=== PATIENT | male | born 1945 | race American Indian/Alaskan Native ===

== ENCOUNTER 2018-10-07 11:52 | Inpatient (IN) | payer MEDICARE ==
[2018-10-07 13:04] LABS: Basophils # (Auto) 0.1 K/mm3 (0.0-0.1); Basophils % (Auto) 0.6 % (0.0-1.8); Eosinophils # (Auto) 0.4 K/mm3 (0.0-0.4); Hematocrit 35.7 % (35.5-45.6); Hemoglobin 12.2 gm/dl (11.8-15.2); Lymphocytes # (Auto) 4.1 K/mm3 (1.2-5.4); Lymphocytes % (Auto) 35.8 % (13.4-35.0); Mean Corpuscular HGB Conc 34 % (32-34); Mean Corpuscular Volume 86 fl (84-94); Monocytes # (Auto) 0.8 K/mm3 (0.0-0.8); Platelet Count 306 K/mm3 (140-440); Red Blood Count 4.16 M/mm3 (3.65-5.03); Red Cell Distribution Width 14.5 % (13.2-15.2)
[2018-10-07 13:15] LABS: INR 0.92 (0.87-1.13)
[2018-10-07 13:16] LABS: Partial Thromboplastin Time 28.4 Sec. (24.2-36.6)
--- NOTE | 2018-10-07 13:16 | XRay Report ---
AP CHEST : 10/07/18 CLINICAL: Chest pain. COMPARISON:None FINDINGS: Normal heart and pulmonary vessels. The lungs are normally expanded and clear. The bones and soft tissues are unremarkable. IMPRESSION: Normal chest.
[2018-10-07 13:28] LABS: Alanine Aminotransferase 12 units/L (7-56); Albumin 3.9 g/dL (3.9-5); BUN/Creatinine Ratio 23; Blood Urea Nitrogen 37 mg/dL (9-20); Calcium 9.5 mg/dL (8.4-10.2); Hemolysis Index 22
[2018-10-07 13:33] LABS: Bilirubin,Direct < 0.2 mg/dL (0-0.2)
--- NOTE | 2018-10-07 14:41 | Emergency Department Report ---
ED General Adult HPI - General Chief complaint: GI Bleed Stated complaint: COUGHING/BLOOD IN STOOL Time Seen by Provider: 10/07/18 12:38 Source: patient Mode of arrival: Ambulatory Limitations: No Limitations - History of Present Illness Initial comments: Patient is a 72-year-old -[place] male who is presenting with 1 week of blood in his stool. Patient states that week ago he started having some blood in his sputum is coughing up blood. Patient states this resolved. He is continued to have blood in his stool. The patient denies any abdominal pain at this time. Patient was sent in from his cardiology office to be evaluated. Patient also is having chest pressure worse with exertion shortness of breath the last several days as well. Patient states that he was concerned his blood pressure was elevated as cardiology office. Patient denies any fevers chills nausea vomiting or diaphoresis at this time. - Related Data Allergies Allergy/AdvReac Type Severity Reaction Status Date / Time No Known Allergies Allergy Unverified 10/07/18 11:53 ED Review of Systems ROS: Stated complaint: COUGHING/BLOOD IN STOOL Other details as noted in HPI Comment: All other systems reviewed and negative ED Physical Exam - General Limitations: No Limitations General appearance: alert, in no apparent distress - Head Head exam: Present: atraumatic, normocephalic - Eye Eye exam: Present: normal appearance - ENT ENT exam: Present: mucous membranes moist - Neck Neck exam: Present: normal inspection - Respiratory Respiratory exam: Present: normal lung sounds bilaterally. Absent: respiratory distress, wheezes, rales, rhonchi - Cardiovascular Cardiovascular Exam: Present: regular rate, normal rhythm, normal heart sounds. Absent: systolic murmur, diastolic murmur, rubs, gallop - GI/Abdominal GI/Abdominal exam: Present: soft, distended, normal bowel sounds. Absent: tenderness, guarding, rebound, rigid - Rectal Rectal exam: Present: deferred - Extremities Exam Extremities exam: Present: normal inspection - Back Exam Back exam: Present: normal inspection - Neurological Exam Neurological exam: Present: alert, oriented X3 - Psychiatric Psychiatric exam: Present: normal affect, normal mood - Skin Skin exam: Present: warm, dry, intact, normal color. Absent: rash ED Medical Decision Making - Lab Data Result diagrams: 10/07/18 12:48 10/07/18 12:48 Lab Results 10/07/18 10/07/18 10/07/18 Range/Units 12:48 12:48 12:48 WBC 11.6 H (4.5-11.0) K/mm3 RBC 4.16 (3.65-5.03) M/mm3 Hgb 12.2 (11.8-15.2) gm/dl Hct 35.7 (35.5-45.6) % MCV 86 (84-94) fl MCH 29 (28-32) pg MCHC 34 (32-34) % RDW 14.5 (13.2-15.2) % Plt Count 306 (140-440) K/mm3 Lymph % (Auto) 35.8 H (13.4-35.0) % [place] % (Auto) 7.0 (0.0-7.3) % Eos % (Auto) 3.0 (0.0-4.3) % Baso % (Auto) 0.6 (0.0-1.8) % Lymph # 4.1 (1.2-5.4) K/mm3 [place] # 0.8 (0.0-0.8) K/mm3 Eos # 0.4 (0.0-0.4) K/mm3 Baso # 0.1 (0.0-0.1) K/mm3 Seg Neutrophils % 53.6 (40.0-70.0) % Seg Neutrophils # 6.2 (1.8-7.7) K/mm3 PT 12.9 (12.2-14.9) Sec. INR 0.92 (0.87-1.13) APTT 28.4 (24.2-36.6) Sec. Sodium 135 L (137-145) mmol/L Potassium 4.5 (3.6-5.0) mmol/L Chloride 100.9 (98-107) mmol/L Carbon Dioxide 17 L (22-30) mmol/L Anion Gap 22 mmol/L BUN 37 H (9-20) mg/dL Creatinine 1.6 H (0.8-1.5) mg/dL Estimated GFR 52 ml/min BUN/Creatinine Ratio 23 % Glucose 108 H (75-100) mg/dL Calcium 9.5 (8.4-10.2) mg/dL Total Bilirubin 0.40 (0.1-1.2) mg/dL Direct Bilirubin < 0.2 (0-0.2) mg/dL AST 13 (5-40) units/L ALT 12 (7-56) units/L Alkaline Phosphatase 81 (35-129) units/L Troponin T < 0.010 (0.00-0.029) ng/mL Total Protein 8.4 H (6.3-8.2) g/dL Albumin 3.9 (3.9-5) g/dL Albumin/Globulin Ratio 0.9 % - EKG Data -: EKG Interpreted by Wi - EKG Data 10/07/18 14:38 EKG shows sinus rhythm a rate of 92. This mole axis normal intervals. There is LVH present. Patient has T-wave inversions in lateral leads. There is no ST segment elevation or depressions. Time of interpretation 1355 - Radiology Data Radiology results: report reviewed [facility] [address] [place] [address] XRay Report Signed Patient: HUNTER CHRISTIE MR#: [id number] 68 : 1945 Acct:[id number] Age/Sex: 72 / M ADM Date: 10/07/18 Loc: ED Attending Dr: Ordering Physician: FABIANA KHALIL MD Date of Service: 10/07/18 Procedure(s): XR chest 1V ap Accession Number(s): [id number] cc: FABIANA KHALIL MD Fluoro Time In Minutes: AP CHEST : 10/07/18 CLINICAL: Chest pain. COMPARISON:None FINDINGS: Normal heart and pulmonary vessels. The lungs are normally expanded and clear. The bones and soft tissues are unremarkable. IMPRESSION: Normal chest. Transcribed By: REF Dictated By: RAULITO HILL MD Electronically Authenticated By: RAULITO HILL MD Signed Date/Time: 10/07/18 1300 - Medical Decision Making Patient is a 72-year-old male who is presenting with chest pain and short of breath with exertion. Patient also noted to have blood in stool. Patient's guaiac positive here in the emergency department. Patient to be admitted to hospitalist service for evaluation for unstable angina. Patient also to have GI consult regarding his GI bleed as well. Critical Care Time: Yes (30) Critical care attestation.: If time is entered above; I have spent that time in minutes in the direct care of this critically ill patient, excluding procedure time. ED Disposition Clinical Impression: Unstable angina GI bleed Qualifiers: GI bleed type/associated pathology: unspecified gastrointestinal hemorrhage type Qualified Code(s): K92.2 - Gastrointestinal hemorrhage, unspecified Disposition: 09 OP ADMIT IP TO THIS HOSP Is pt being admited?: Yes Does the pt Need Aspirin: No (asa held secondary to the GI bleeding) Condition: Serious Time of Disposition: 14:41
[2018-10-07] MEDS: NITROSTAT SL PRN ×2 (16:08→17:12)
--- NOTE | 2018-10-07 18:19 | Cat Scan Report ---
PROCEDURE: CT ABDOMEN PELVIS WO CON TECHNIQUE: Axial images of the abdomen and pelvis obtained without intravenous or oral contrast. Sag ittal and coronal reconstructions also obtained. HISTORY: ASCITES COMPARISONS: No priors FINDINGS: Images through the lung bases show no evidence of airspace consolidation or pleural effusions. The liver, spleen, adrenals, pancreas are within normal limits. There is a small hiatal hernia. Multiple gallstones in the dependent portion of the gallbladder. There is no evidence of urolithiasis or obstructive uropathy. Renal vascular calcifications noted. No ascites. No bowel obstruction or free intraperitoneal air. No evidence of colitis or diverticulitis. Normal appendix. Sigmoid diverticulosis. Urinary bladder within normal limits. Limited evaluation without intravenous and oral contrast. IMPRESSION: . Cholelithiasis. Small hiatal hernia. Sigmoid diverticulosis with no diverticulitis. No evidence of ascites. This document is electronically signed by Misha Bustos MD., October 07 2018 06:16:53 PM ET
[2018-10-07] MEDS ORDERED: APRESOLINE IV ONE (20:00)
[2018-10-07] MEDS ORDERED: SODIUM CHLORIDE FLUSH SYRINGE 10 ML IV PRN (21:55)
[2018-10-07] MEDS ORDERED: REGLAN IV PRN (21:55)
[2018-10-07] MEDS ORDERED: TYLENOL PO PRN (21:55)
[2018-10-07] MEDS ORDERED: ZOFRAN IV PRN (21:55)
[2018-10-07] MEDS ORDERED: DILAUDID IV PRN (21:55)
--- NOTE | 2018-10-07 21:55 | Event Note ---
Date: 10/07/18 See H/p in reports Chest pain r/o ID Lower GI Bleed
[2018-10-07] MEDS ORDERED: NACL 0.9% 1000 ML 1,000 ML IV SCH (22:00)
[2018-10-07] MEDS: SODIUM CHLORIDE FLUSH SYRINGE 10 ML IV SCH (23:44)
[2018-10-07] MEDS: PROTONIX 80 MG in NACL 0.9% 100 ML IV SCH (23:44)
--- NOTE | 2018-10-08 06:03 | History and Physical Report ---
CHIEF COMPLAINT: 1. Lower GI bleed. 2. Chest pressure for 1 day. HISTORY OF PRESENT ILLNESS: A 72-year-old sent from [facility] for chest pressure and low GI bleed. The patient has been having 1 week of blood in the stool, small amounts. The patient also coughed up some blood. This has resolved as per the patient. He continues to have a small amount of blood in the stool, bright red. Also, chest pain and chest pressure with exertion and also shortness of breath for the last couple of weeks. The patient is also concerned about his blood pressure being elevated at the Cardiology office. No fever or chills. No recent travel. No prior history of GI bleed. PAST MEDICAL HISTORY: Significant for hypertension, vitamin D deficiency, arthritis. PAST SURGICAL HISTORY: None. FAMILY HISTORY: Hypertension. SOCIAL HISTORY: Does not smoke. No alcohol, no recreational drugs. REVIEW OF SYSTEMS: Significant for shortness of breath and chest pressure on exertion and also blood in the stools for the last 1 week. Otherwise, review of systems negative. PHYSICAL EXAMINATION: GENERAL: Elderly male, cooperative during examination. VITAL SIGNS: Blood pressure is 138/90, temperature is 98.5, pulse is 104, respiratory rate is 14, sats are 97%. HEENT: Unremarkable. Pupils are equal and reactive. NECK: Supple, no lymphadenopathy, no thyromegaly. LUNGS: Clear to auscultation and percussion. Good air entry. CARDIOVASCULAR: S1, S2 heard. No gallop, no murmur, no rub. Apical impulse in the left fifth intercostal space and midclavicular line. ABDOMEN: Soft and benign. No hepatosplenomegaly. No guarding, no rigidity. Hernial orifices are normal. EXTREMITIES: Good pedal pulses. No pedal edema. CENTRAL NERVOUS SYSTEM: Alert and oriented x 4, nonfocal exam. LABORATORY DATA AND EKG STUDIES: EKG shows sinus rhythm, LVH by voltage criteria, heart rate of 92 per minute. Chest x-ray shows normal chest. No acute findings. Abdominal CAT scan shows cholelithiasis, small hiatal hernia, sigmoid diverticulosis with no diverticulitis. No evidence of ascites. Labs are significant for white count of 11,600, hemoglobin of 12.2, hematocrit of 35.7, platelet count of 306,000. Sodium is 135. BUN and creatinine 37 and 1.6. Glucose is 108. Total protein is 8.4. ASSESSMENT AND PLAN: 1. Chest pain, rule out myocardial infarction, chest pain protocol. The patient to get serial troponins and Lexiscan. Cardiology consult requested. 2. Lower gastrointestinal bleed. GI consult requested for possible colonoscopy and upper endoscopy. The patient initiated on Protonix. 3. Hypertension. Continue antihypertensives. 4. Deep venous thrombosis prophylaxis, only SCDs and GI prophylaxis. 5. Hyponatremia, mild. 6. Acute kidney injury, IV fluids for the time being. JOB# [id number] VSM/NTS
[2018-10-08 07:42] LABS: Basophils # (Auto) 0.1 K/mm3 (0.0-0.1); Basophils % (Auto) 0.5 % (0.0-1.8); Eosinophils # (Auto) 0.2 K/mm3 (0.0-0.4); Eosinophils % (Auto) 2.2 % (0.0-4.3); Hematocrit 33.9 % (35.5-45.6); Hemoglobin 11.6 gm/dl (11.8-15.2); Lymphocytes # (Auto) 3.7 K/mm3 (1.2-5.4); Lymphocytes % (Auto) 34.6 % (13.4-35.0); Mean Corpuscular HGB Conc 34 % (32-34); Mean Corpuscular Volume 86 fl (84-94); Monocytes # (Auto) 0.9 K/mm3 (0.0-0.8); Monocytes % (Auto) 8.6 % (0.0-7.3); Platelet Count 271 K/mm3 (140-440); Red Blood Count 3.92 M/mm3 (3.65-5.03); Red Cell Distribution Width 15.1 % (13.2-15.2)
[2018-10-08 08:02] LABS: Albumin 3.7 g/dL (3.9-5); Calcium 8.8 mg/dL (8.4-10.2)
--- NOTE | 2018-10-08 11:25 | Consultation ---
History of Present Illness Consult date: 10/08/18 Consult reason: chest pain History of present illness: This is a 72 year old male who presented with lower GI bleed. Patient reports he takes ibuprofen daily. Initial labs revealed acute renal failure, creatinine 1.7. H&h is stable. A cardiac consultation has been requested for chest pain evaluation. Upon assessment, patient denies chest pain. He denies unusual shortness of breath and palpitations. His EKG is sinus rhythm, LVH with repolarization abnormalities. Patient is known to [facility] and has recently undergone non-invasive car diac workup. Just one month ago he had a normal myocardial perfusion scan, and a normal left ventricular function, ejection fraction 50-55% by echocardiogram. Medications and Allergies Allergies Allergy/AdvReac Type Severity Reaction Status Date / Time No Known Allergies Allergy Unverified 10/07/18 11:53 Home Medications Medication Instructions Recorded Confirmed Last Taken Type Ergocalciferol (Vitamin D2) 50,000 unit PO QWEEK 10/07/18 10/07/18 Unknown History [Drisdol] Ibuprofen [Ibu] 800 mg PO TID 10/07/18 10/07/18 Unknown History NIFEdipine XL [Procardia Xl] 60 mg PO DAILY 10/07/18 10/07/18 Unknown History Active Meds: Active Medications Acetaminophen (Tylenol) 650 mg PO Q4H PRN PRN Reason: Pain MILD(1-3)/Fever >100.5/LARA Hydromorphone HCl (Dilaudid) 0.5 mg IV Q3H PRN PRN Reason: Pain , Severe (7-10) Sodium Chloride (Nacl 0.9% 1000 Ml) 1,000 mls @ 75 mls/hr IV DIRECT CHAVEZ Last Admin: 10/07/18 23:44 Dose: 75 mls/hr Documented by: Pantoprazole Sodium 80 mg/ (Sodium Chloride) 100 mls @ 10 mls/hr IV DIRECT CHAVEZ Last Admin: 10/07/18 23:44 Dose: 8 mg/hr, 10 mls/hr Documented by: Metoclopramide HCl (Reglan) 10 mg IV Q6H PRN PRN Reason: Nausea And Vomiting Morphine Sulfate (Morphine) 2 mg IV Q4H PRN PRN Reason: Pain, Moderate (4-6) Last Admin: 10/08/18 00:00 Dose: 2 mg Documented by: Nitroglycerin (Nitrostat) 0.4 mg SL .Q5MIN PRN PRN Reason: Chest Pain Last Admin: 10/07/18 17:12 Dose: 0.4 mg Documented by: Ondansetron HCl (Zofran) 4 mg IV Q8H PRN PRN Reason: Nausea And Vomiting Sodium Chloride (Sodium Chloride Flush Syringe 10 Ml) 10 ml IV BID CHAVEZ Last Admin: 10/07/18 23:44 Dose: 10 ml Documented by: Sodium Chloride (Sodium Chloride Flush Syringe 10 Ml) 10 ml IV PRN PRN PRN Reason: LINE FLUSH Physical Examination Vital Signs Pulse Resp BP Pulse Ox 87 23 175/83 95 10/07/18 11:15 10/07/18 11:15 10/07/18 11:15 10/07/18 11:15 General appearance: no acute distress, obese HEENT: Positive: PERRL Cardiac: Positive: Reg Rate and Rhythm Lungs: Positive: Decreased Breath Sounds Neuro: Positive: Grossly Intact Results 10/08/18 07:00 10/08/18 07:00 Cardiac Enzymes 10/07/18 10/08/18 Range/Units 12:48 07:00 AST 13 11 (5-40) units/L Coagulation 10/07/18 Range/Units 12:48 PT 12.9 (12.2-14.9) Sec. INR 0.92 (0.87-1.13) APTT 28.4 (24.2-36.6) Sec. CBC 10/07/18 10/08/18 Range/Units 12:48 07:00 WBC 11.6 H 10.8 (4.5-11.0) K/mm3 RBC 4.16 3.92 (3.65-5.03) M/mm3 Hgb 12.2 11.6 L (11.8-15.2) gm/dl Hct 35.7 33.9 L (35.5-45.6) % Plt Count 306 271 (140-440) K/mm3 Lymph # 4.1 3.7 (1.2-5.4) K/mm3 [place] # 0.8 0.9 H (0.0-0.8) K/mm3 Eos # 0.4 0.2 (0.0-0.4) K/mm3 Baso # 0.1 0.1 (0.0-0.1) K/mm3 Comprehensive Metabolic Panel 10/07/18 10/08/18 Range/Units 12:48 07:00 Sodium 135 L 133 L (137-145) mmol/L Potassium 4.5 4.4 (3.6-5.0) mmol/L Chloride 100.9 101.0 (98-107) mmol/L Carbon Dioxide 17 L 18 L (22-30) mmol/L BUN 37 H 36 H (9-20) mg/dL Creatinine 1.6 H 1.7 H (0.8-1.5) mg/dL Glucose 108 H 116 H (75-100) mg/dL Calcium 9.5 8.8 (8.4-10.2) mg/dL Direct Bilirubin < 0.2 (0-0.2) mg/dL AST 13 11 (5-40) units/L ALT 12 10 (7-56) units/L Alkaline Phosphatase 81 71 (35-129) units/L Total Protein 8.4 H 8.2 (6.3-8.2) g/dL Albumin 3.9 3.7 L (3.9-5) g/dL Assessment and Plan Lower GI bleed Hypertension Normal myocardial perfusion scan 08/2018 Normal left ventricular function, ejection fraction 50-55% by echocardiogram 08/2018. Ok to proceed with GI endoscopy.
--- NOTE | 2018-10-08 13:26 | Progress Note ---
Assessment and Plan Assessment and plan: Chest pain - Cardiac enzymes are negative, stress test was ordered - Cardiology consulted and cleared him for EGD/colonoscopy Rectal bleeding - H&H is stable - GI consulted and due to endoscopy today Acute renal failure - Creatinine this morning was 1.7 - We'll monitor Mild hyponatremia - Patient is symptomatic and will monitor Chronic hep C - Patient is on treatment for that DVT prophylaxis Disposition - Continue inpatient care History Interval history: Patient was seen and evaluated this morning, patient was comfortable, chest pain resolved. No rectal bleeding overnight. Hospitalist Physical - Physical exam Narrative exam: Not in cardiopulmonary distress. The patient appeared well nourished and normally developed. Vital signs as documented. Head exam is unremarkable. No scleral icterus . Neck is without jugular venous distension, thyromegaly, or carotid bruits. Lungs are clear to auscultation. Cardiac exam reveals regular rate and Rhythm. First and second heart sounds normal. No murmurs, rubs or gallops. Abdominal exam obese, distended, nontender, no guarding or rigidity.. Extremities are nonedematous and both femoral and pedal pulses are normal. BALANCE STAFF INSPECTOR: Alert and oriented 3. No focal weakness. - Constitutional Vitals: Temp Pulse Resp BP Pulse Ox 98.1 F 101 H 16 146/81 100 10/08/18 04:19 10/08/18 04:19 10/08/18 04:19 10/08/18 04:19 10/08/18 04:19 General appearance: Present: no acute distress, obese Results - Labs CBC & Chem 7: 10/08/18 07:00 10/08/18 07:00 Labs: Laboratory Last Values WBC 10.8 K/mm3 (4.5-11.0) 10/08/18 07:00 RBC 3.92 M/mm3 (3.65-5.03) 10/08/18 07:00 Hgb 11.6 gm/dl (11.8-15.2) L 10/08/18 07:00 Hct 33.9 % (35.5-45.6) L 10/08/18 07:00 MCV 86 fl (84-94) 10/08/18 07:00 MCH 30 pg (28-32) 10/08/18 07:00 MCHC 34 % (32-34) 10/08/18 07:00 RDW 15.1 % (13.2-15.2) 10/08/18 07:00 Plt Count 271 K/mm3 (140-440) 10/08/18 07:00 Lymph % (Auto) 34.6 % (13.4-35.0) 10/08/18 07:00 [place] % (Auto) 8.6 % (0.0-7.3) H 10/08/18 07:00 Eos % (Auto) 2.2 % (0.0-4.3) 10/08/18 07:00 Baso % (Auto) 0.5 % (0.0-1.8) 10/08/18 07:00 Lymph # 3.7 K/mm3 (1.2-5.4) 10/08/18 07:00 [place] # 0.9 K/mm3 (0.0-0.8) H 10/08/18 07:00 Eos # 0.2 K/mm3 (0.0-0.4) 10/08/18 07:00 Baso # 0.1 K/mm3 (0.0-0.1) 10/08/18 07:00 Seg Neutrophils % 54.1 % (40.0-70.0) 10/08/18 07:00 Seg Neutrophils # 5.9 K/mm3 (1.8-7.7) 10/08/18 07:00 PT 12.9 Sec. (12.2-14.9) 10/07/18 12:48 INR 0.92 (0.87-1.13) 10/07/18 12:48 APTT 28.4 Sec. (24.2-36.6) 10/07/18 12:48 Sodium 133 mmol/L (137-145) L 10/08/18 07:00 Potassium 4.4 mmol/L (3.6-5.0) 10/08/18 07:00 Chloride 101.0 mmol/L (98-107) 10/08/18 07:00 Carbon Dioxide 18 mmol/L (22-30) L 10/08/18 07:00 Anion Gap 18 mmol/L 10/08/18 07:00 BUN 36 mg/dL (9-20) H 10/08/18 07:00 Creatinine 1.7 mg/dL (0.8-1.5) H 10/08/18 07:00 Estimated GFR 48 ml/min 10/08/18 07:00 BUN/Creatinine Ratio 21 % 10/08/18 07:00 Glucose 116 mg/dL (75-100) H 10/08/18 07:00 Hemoglobin A1c 5.8 % (4-6) 10/07/18 13:25 Calcium 8.8 mg/dL (8.4-10.2) 10/08/18 07:00 Total Bilirubin 0.40 mg/dL (0.1-1.2) 10/08/18 07:00 Direct Bilirubin < 0.2 mg/dL (0-0.2) 10/07/18 12:48 AST 11 units/L (5-40) 10/08/18 07:00 ALT 10 units/L (7-56) 10/08/18 07:00 Alkaline Phosphatase 71 units/L (35-129) 10/08/18 07:00 Troponin T < 0.010 ng/mL (0.00-0.029) 10/07/18 14:44 Total Protein 8.2 g/dL (6.3-8.2) 10/08/18 07:00 Albumin 3.7 g/dL (3.9-5) L 10/08/18 07:00 Albumin/Globulin Ratio 0.8 % 10/08/18 07:00 Active Medications - Current Medications Current Medications: Generic Name Dose Route Start Last Admin Trade Name Freq PRN Reason Stop Dose Admin Acetaminophen 650 mg 10/07/18 21:55 Tylenol PO Q4H PRN Pain MILD(1-3)/Fever >100.5/LARA Hydromorphone HCl 0.5 mg 10/07/18 21:55 Dilaudid IV Q3H PRN Pain , Severe (7-10) Sodium Chloride 1,000 mls @ 75 mls/hr 10/07/18 22:00 10/07/18 23:44 Nacl 0.9% 1000 Ml IV 75 mls/hr DIRECT CHAVEZ Administration Pantoprazole Sodium 80 mg/ 100 mls @ 10 mls/hr 10/07/18 22:00 10/07/18 23:44 Sodium Chloride IV 8 mg/hr DIRECT CHAVEZ 10 mls/hr Administration 8 MG/HR Metoclopramide HCl 10 mg 10/07/18 21:55 Reglan IV Q6H PRN Nausea And Vomiting Morphine Sulfate 2 mg 10/07/18 21:55 10/08/18 00:00 Morphine IV 2 mg Q4H PRN Administration Pain, Moderate (4-6) Nitroglycerin 0.4 mg 10/07/18 13:33 10/07/18 17:12 Nitrostat SL 0.4 mg .Q5MIN PRN Administration Chest Pain Ondansetron HCl 4 mg 10/07/18 21:55 Zofran IV Q8H PRN Nausea And Vomiting Sodium Chloride 10 ml 10/07/18 22:00 10/07/18 23:44 Sodium Chloride Flush Syringe 10 Ml IV 10 ml BID CHAVEZ Administration Sodium Chloride 10 ml 10/07/18 21:55 Sodium Chloride Flush Syringe 10 Ml IV PRN PRN LINE FLUSH
[2018-10-08] MEDS: NACL 0.9% 1000 ML 1,000 ML IV SCH (14:32)
[2018-10-08] MEDS ORDERED: DIPRIVAN 10 MG/ML IV ONE (15:40)
[2018-10-08] MEDS ORDERED: XYLOCAINE 2% INFILTRATI ONE (15:42)
--- NOTE | 2018-10-08 16:04 | Procedure Note ---
Date of procedure: 10/08/18 Pre-op diagnosis: GI Bleeding Post-op diagnosis: other Procedure: EGD with Biopsy Anesthesia: MAC Surgeon: NINA BAE Estimated blood loss: minimal Pathology: list Specimen disposition: to lab Condition: stable Disposition: same day (Treat with PPI. Colonoscopy in the am further assessment.)
[2018-10-08] MEDS ORDERED: GOLYTELY PO ONE (17:00)
--- NOTE | 2018-10-08 17:44 | Operative Report ---
PROCEDURE: EGD with biopsy. INDICATIONS: A 72-year-old -[place] gentleman who has an underlying prior history of alcohol use, has had chronic hepatitis C for which he has been treated over with a 12-week course of treatment, presented to the hospital with GI bleeding. DESCRIPTION OF PROCEDURE: EGD was done with MAC anesthesia after getting informed consent. Instrument was passed through the hypopharynx into the esophagus, which showed moderate distal erosive esophagitis. There was no evidence of any esophageal varices. Stomach showed antral erosion, but no ulcers were noted within the straight or the retroverted view. This patient did have a moderate hiatal hernia. There was no evidence of any old or new blood within the gastric lumen. The pylorus was patent. The duodenum in the first and second portion appeared normal. There was no blood within the duodenal lumen. A biopsy was done from the gastric antrum where the erosion was, from the gastric body and from the angularis incisura. There was minimal bleeding from the biopsy sites, but no active bleeding was noted from the upper GI tract. ASSESSMENT: Gastrointestinal bleeding. No active upper GI bleeding noted. Moderate distal erosive esophagitis, moderate hiatal hernia, antral erosion. PLAN: To treat the patient with PPI, supportive care and treatment, and to do a colonoscopy for further assessment. RN, Geetha Newton was in the room throughout the entirety of the procedure, there were no complications associated with the procedure and minimal bleeding associated with the biopsy. [facility]# [id number] NICOLETTE/REX
[2018-10-08 19:37] LABS: Basophils # (Auto) 0.1 K/mm3 (0.0-0.1); Basophils % (Auto) 0.8 % (0.0-1.8); Eosinophils # (Auto) 0.2 K/mm3 (0.0-0.4); Eosinophils % (Auto) 2.5 % (0.0-4.3); Hematocrit 33.4 % (35.5-45.6); Hemoglobin 11.3 gm/dl (11.8-15.2); Lymphocytes # (Auto) 3.4 K/mm3 (1.2-5.4); Mean Corpuscular HGB Conc 34 % (32-34); Mean Corpuscular Volume 86 fl (84-94); Monocytes % (Auto) 10.4 % (0.0-7.3); Platelet Count 261 K/mm3 (140-440); Red Blood Count 3.87 M/mm3 (3.65-5.03); Red Cell Distribution Width 14.8 % (13.2-15.2)
[2018-10-08] MEDS: MORPHINE IV PRN ×2 (20:01)
--- NOTE | 2018-10-08 21:52 | Consultation ---
HISTORY OF PRESENT ILLNESS: This is a 72-year-old -[place] gentleman who has a prior history of significant alcohol use, also has a history of hepatitis C for which he states he has been treated with one of the newer drugs. He gives no prior history of stroke or any cardiac issues, but had presented to the hospital with GI bleeding. He was having dark stool suggestive possibly of melena. He states that he may have had melena in the past as well. He is to be assessed by field marketing director and if okay from a cardiology standpoint, then EGD may be done for further evaluation. The patient did complain of some chest pressure for which he is being assessed by Cardiology as stated above. ALLERGIES: He has had no known allergies. PAST MEDICAL HISTORY: Significant for chronic hepatitis C that has been treated, history of alcohol and tobacco use, which he states that he does not use at present. PHYSICAL EXAMINATION: VITAL SIGNS: stable. HEENT: Shows no JVD. LUNGS: Show reduced breath sounds. CARDIOVASCULAR: Normal. ABDOMEN: Shows some mid abdominal tenderness. EXTREMITIES: No pedal edema. NEUROLOGIC: He is alert and oriented. LABORATORY DATA: His hemoglobin was 12.2 when he initially came in with a hematocrit of 35.7 and a white count of 11.6. Electrolytes are essentially normal. BUN is 37, creatinine is 1.6. ASSESSMENT: Gastrointestinal bleeding with melena, possible peptic ulcer disease, history of chronic hepatitis C, possible alcoholic liver disease, history of some chest discomfort. PLAN: To continue with present treatment and to do an EGD once the patient gets cardiac clearance. Thanks to the hospitalist for the kind referral. JOB# [id number] NICOLETTE/REX
[2018-10-09] MEDS: PROTONIX 80 MG in NACL 0.9% 100 ML IV SCH
[2018-10-09] MEDS: NACL 0.9% 1000 ML 1,000 ML IV SCH (05:52)
[2018-10-09 06:34] LABS: Basophils % (Auto) 0.4 % (0.0-1.8); Eosinophils # (Auto) 0.3 K/mm3 (0.0-0.4); Eosinophils % (Auto) 2.8 % (0.0-4.3); Hematocrit 32.7 % (35.5-45.6); Lymphocytes # (Auto) 3.6 K/mm3 (1.2-5.4); Lymphocytes % (Auto) 33.1 % (13.4-35.0); Mean Corpuscular HGB Conc 34 % (32-34); Mean Corpuscular Volume 88 fl (84-94); Monocytes # (Auto) 1.5 K/mm3 (0.0-0.8); Monocytes % (Auto) 13.9 % (0.0-7.3); Platelet Count 237 K/mm3 (140-440); Red Blood Count 3.74 M/mm3 (3.65-5.03); Red Cell Distribution Width 15.1 % (13.2-15.2)
[2018-10-09 07:00] LABS: BUN/Creatinine Ratio 20; Blood Urea Nitrogen 28 mg/dL (9-20); Calcium 8.4 mg/dL (8.4-10.2); Hemolysis Index 11
[2018-10-09] MEDS ORDERED: WATER FOR IRRIG STERILE IR ONE (07:58)
[2018-10-09] MEDS ORDERED: NACL 0.9% 1000 ML 1,000 ML ONE (08:19)
[2018-10-09] MEDS ORDERED: DIPRIVAN 10 MG/ML IV ONE ×6 (08:42→10:15)
[2018-10-09] MEDS ORDERED: NACL 0.9% 1000 ML 1,000 ML IV SCH (09:00)
[2018-10-09] MEDS ORDERED: WATER FOR IRRIG STERILE ONE (09:17)
[2018-10-09] MEDS: SODIUM CHLORIDE FLUSH SYRINGE 10 ML IV SCH ×2 (09:51→21:16)
[2018-10-09] MEDS: PROTONIX PO SCH (09:53)
--- NOTE | 2018-10-09 10:32 | Procedure Note ---
Date of procedure: 10/09/18 Pre-op diagnosis: GI Bleeding Post-op diagnosis: other (Multiple Colon Polyps in the Transverse Colon (one removed in a'piece meal' fashion)/ 5 cc of Martha Ink injected around the larger Polyp) Procedure: Colonoscopy with snare excision of 3 polyps (one removed in a 'piece meal' fashion)and injection of 5 cc of Martha Ink. Anesthesia: MAC Surgeon: NINA BAE Estimated blood loss: minimal Pathology: list Specimen disposition: to lab Condition: stable Disposition: same day (Avoid aspirin and NSAID and anticoagulants for 5 days. Clear liquid diet and then advance as tolerated.)
--- NOTE | 2018-10-09 12:33 | Operative Report ---
PROCEDURE PERFORMED: Colonoscopy. INDICATIONS: A 72-year-old male who had presented to the hospital with GI bleeding. EGD done yesterday had shown presence of gastric erosion and esophagitis, but no evidence of any active GI bleeding. Colonoscopy was done to make sure there was not any significant lower GI pathology that would account for the patient's bleeding. DESCRIPTION OF PROCEDURE: Procedure was done after getting informed consent with MAC anesthesia. Initial rectal exam was unremarkable. Instrument was passed through the rectum onto the cecum with some degree of difficulty since the patient had a tortuous and redundant colon. There was no significant visualization, it was fair to slightly poor. The mucosa was washed with copious amounts of water. In the cecum, ascending colon showed normal mucosa. In the proximal transverse colon, there was a large sessile polyp, possibly 2.5 cm in diameter. This was removed in a piecemeal fashion and about 3 mL of Martha ink was injected around it to zari it since the patient will require a repeat colonoscopy in 6 months' time. There were additional 2 other polyps that were noted in the middle to distal transverse colon that were also removed by snare excision and retrieved. The left colon showed normal mucosa, visualization was slightly impaired because of suboptimal prep and the rectum showed [id number] internal hemorrhoids. There was minimal bleeding from the biopsy sites. No complications associated with the procedure. Luna REDD and the rest of the GI team were in the room during the procedure. ASSESSMENT: Gastrointestinal bleeding, multiple colon polyps, large sessile polyp in the proximal transverse colon as well as smaller sessile polyps also in the distal transverse colon, now removed by snare excision. [id number] internal hemorrhoid. RECOMMENDATIONS: The patient will be asked to avoid aspirin and aspirin-related products and anticoagulants for the next few days. Resume a clear liquid diet and advance diet as tolerated. The patient will be asked to follow up and have a repeat colonoscopy done in 6 months' time since the polyp was removed. The largest polyp was removed in a piecemeal fashion. Again, members of the GI team including Luna REDD, were in the room during the procedure. JOB# [id number] NICOLETTE/REX
--- NOTE | 2018-10-09 12:43 | Progress Note ---
Assessment and Plan Assessment and plan: Chest pain - Cardiac enzymes are negative, stress test was done recently and was negative - Cardiology consulted and cleared him for EGD/colonoscopy Rectal bleeding - H&H is stable - EGD showed mild gastritis and colonoscopy was done today and has one big and 2 small polyps and the big polyp is removed in piecemeal and need repeat colonoscopy in [address] Ruiz Acute renal failure -resolved Mild hyponatremia - resolved Chronic hep C - Patient is on treatment for that DVT prophylaxis; off any anticoagulants for at least 2 days Disposition - Possible DC tomorrow if stable. History Interval history: Patient was seen and evaluated this morning, patient was comfortable, chest pain resolved. No rectal bleeding overnight. Hospitalist Physical - Physical exam Narrative exam: Not in cardiopulmonary distress. The patient appeared well nourished and normally developed. Vital signs as documented. Head exam is unremarkable. No scleral icterus . Neck is without jugular venous distension, thyromegaly, or carotid bruits. Lungs are clear to auscultation. Cardiac exam reveals regular rate and Rhythm. First and second heart sounds normal. No murmurs, rubs or gallops. Abdominal exam obese, distended, nontender, no guarding or rigidity.. Extremities are nonedematous and both femoral and pedal pulses are normal. PAYROLL OFFICER: Alert and oriented 3. No focal weakness. - Constitutional Vitals: Temp Pulse Resp BP Pulse Ox 98.1 F 92 H 20 138/77 96 10/09/18 09:00 10/09/18 09:00 10/09/18 09:00 10/09/18 09:00 10/09/18 10:00 General appearance: Present: no acute distress, obese Results - Labs CBC & Chem 7: 10/09/18 05:37 10/09/18 05:37 Labs: Laboratory Last Values WBC 11.0 K/mm3 (4.5-11.0) 10/09/18 05:37 RBC 3.74 M/mm3 (3.65-5.03) 10/09/18 05:37 Hgb 11.0 gm/dl (11.8-15.2) L 10/09/18 05:37 Hct 32.7 % (35.5-45.6) L 10/09/18 05:37 MCV 88 fl (84-94) 10/09/18 05:37 MCH 30 pg (28-32) 10/09/18 05:37 MCHC 34 % (32-34) 10/09/18 05:37 RDW 15.1 % (13.2-15.2) 10/09/18 05:37 Plt Count 237 K/mm3 (140-440) 10/09/18 05:37 Lymph % (Auto) 33.1 % (13.4-35.0) 10/09/18 05:37 [place] % (Auto) 13.9 % (0.0-7.3) H 10/09/18 05:37 Eos % (Auto) 2.8 % (0.0-4.3) 10/09/18 05:37 Baso % (Auto) 0.4 % (0.0-1.8) 10/09/18 05:37 Lymph # 3.6 K/mm3 (1.2-5.4) 10/09/18 05:37 [place] # 1.5 K/mm3 (0.0-0.8) H 10/09/18 05:37 Eos # 0.3 K/mm3 (0.0-0.4) 10/09/18 05:37 Baso # 0.0 K/mm3 (0.0-0.1) 10/09/18 05:37 Seg Neutrophils % 49.8 % (40.0-70.0) 10/09/18 05:37 Seg Neutrophils # 5.5 K/mm3 (1.8-7.7) 10/09/18 05:37 PT 12.9 Sec. (12.2-14.9) 10/07/18 12:48 INR 0.92 (0.87-1.13) 10/07/18 12:48 APTT 28.4 Sec. (24.2-36.6) 10/07/18 12:48 Sodium 143 mmol/L (137-145) D 10/09/18 05:37 Potassium 4.0 mmol/L (3.6-5.0) 10/09/18 05:37 Chloride 107.1 mmol/L (98-107) H 10/09/18 05:37 Carbon Dioxide 21 mmol/L (22-30) L 10/09/18 05:37 Anion Gap 19 mmol/L 10/09/18 05:37 BUN 28 mg/dL (9-20) H 10/09/18 05:37 Creatinine 1.4 mg/dL (0.8-1.5) 10/09/18 05:37 Estimated GFR > 60 ml/min 10/09/18 05:37 BUN/Creatinine Ratio 20 % 10/09/18 05:37 Glucose 102 mg/dL (75-100) H 10/09/18 05:37 Hemoglobin A1c 5.8 % (4-6) 10/07/18 13:25 Calcium 8.4 mg/dL (8.4-10.2) 10/09/18 05:37 Total Bilirubin 0.40 mg/dL (0.1-1.2) 10/08/18 07:00 Direct Bilirubin < 0.2 mg/dL (0-0.2) 10/07/18 12:48 AST 11 units/L (5-40) 10/08/18 07:00 ALT 10 units/L (7-56) 10/08/18 07:00 Alkaline Phosphatase 71 units/L (35-129) 10/08/18 07:00 Troponin T < 0.010 ng/mL (0.00-0.029) 10/07/18 14:44 Total Protein 8.2 g/dL (6.3-8.2) 10/08/18 07:00 Albumin 3.7 g/dL (3.9-5) L 10/08/18 07:00 Albumin/Globulin Ratio 0.8 % 10/08/18 07:00 Active Medications - Current Medications Current Medications: Generic Name Dose Route Start Last Admin Trade Name Freq PRN Reason Stop Dose Admin Acetaminophen 650 mg 10/07/18 21:55 Tylenol PO Q4H PRN Pain MILD(1-3)/Fever >100.5/LARA Hydromorphone HCl 0.5 mg 10/07/18 21:55 Dilaudid IV Q3H PRN Pain , Severe (7-10) Sodium Chloride 1,000 mls @ 75 mls/hr 10/07/18 22:00 10/07/18 23:44 Nacl 0.9% 1000 Ml IV 75 mls/hr DIRECT CHAVEZ Administration Sodium Chloride 1,000 mls @ 50 mls/hr 10/08/18 15:00 10/09/18 05:52 Nacl 0.9% 1000 Ml IV 50 mls/hr DIRECT CHAVEZ Administration Sodium Chloride 1,000 mls @ 50 mls/hr 10/09/18 09:00 Nacl 0.9% 1000 Ml IV DIRECT CHAVEZ Metoclopramide HCl 10 mg 10/07/18 21:55 Reglan IV Q6H PRN Nausea And Vomiting Morphine Sulfate 2 mg 10/07/18 21:55 10/08/18 20:01 Morphine IV 2 mg Q4H PRN Administration Pain, Moderate (4-6) Nifedipine 60 mg 10/09/18 12:00 Procardia Xl PO DAILY [facility] Nitroglycerin 0.4 mg 10/07/18 13:33 10/07/18 17:12 Nitrostat SL 0.4 mg .Q5MIN PRN Administration Chest Pain Ondansetron HCl 4 mg 10/07/18 21:55 Zofran IV Q8H PRN Nausea And Vomiting Pantoprazole Sodium 40 mg 10/09/18 10:00 10/09/18 09:53 Protonix PO Not Given DAILY [facility] Sodium Chloride 10 ml 10/07/18 22:00 10/09/18 09:51 Sodium Chloride Flush Syringe 10 Ml IV Not Given BID CHAVEZ Sodium Chloride 10 ml 10/07/18 21:55 Sodium Chloride Flush Syringe 10 Ml IV PRN PRN LINE FLUSH
[2018-10-09] MEDS ORDERED: APRESOLINE IV PRN (18:33)
[2018-10-10 07:49] LABS: Basophils # (Auto) 0.1 K/mm3 (0.0-0.1); Basophils % (Auto) 0.6 % (0.0-1.8); Eosinophils # (Auto) 0.2 K/mm3 (0.0-0.4); Eosinophils % (Auto) 1.8 % (0.0-4.3); Hemoglobin 10.9 gm/dl (11.8-15.2); Lymphocytes # (Auto) 3.2 K/mm3 (1.2-5.4); Lymphocytes % (Auto) 24.1 % (13.4-35.0); Mean Corpuscular HGB Conc 33 % (32-34); Mean Corpuscular Volume 89 fl (84-94); Monocytes # (Auto) 1.3 K/mm3 (0.0-0.8); Monocytes % (Auto) 9.4 % (0.0-7.3); Platelet Count 237 K/mm3 (140-440); Red Blood Count 3.72 M/mm3 (3.65-5.03); Red Cell Distribution Width 15.1 % (13.2-15.2)
[2018-10-10 08:14] LABS: BUN/Creatinine Ratio 15; Blood Urea Nitrogen 20 mg/dL (9-20); Calcium 8.6 mg/dL (8.4-10.2); Hemolysis Index 23
[2018-10-10] MEDS: MORPHINE IV PRN (08:16)
--- NOTE | 2018-10-10 08:41 | Progress Note ---
Subjective Date of service: 10/10/18 Principal diagnosis: GI Bleeding Interval history: Patient is clinically doing well and in no apparent distress. Colonoscopy done yesterday had shown the presence of several polyps; the largest was removed in a'piece meal' fashion and patient will need a repeat Colonoscopy in 6 months. O/E HEENT: No JVD Lungs: Reduced Breath Sounds CVS: Normal Heart Sounds Abdomen: Sligtly distended, Bowel sounds present, possible ascites DIRECTOR TEEN POST: Alert and oriented A/P Multiple Colon Poyps/ Esophagitis/Gastric Erosion/H/O Chronic Hep C Treaated: Repeat Colonoscopy after 6months. U/S of the liver also to be done. Objective - Constitutional Vitals: Vital Signs - 12hr 10/09/18 10/10/18 20:59 00:00 Pulse Rate 100 H O2 Sat by Pulse 97 Oximetry - Labs CBC & Chem 7: 10/10/18 07:30 10/10/18 07:30 Labs: Abnormal lab results 10/10/18 10/10/18 Range/Units 07:30 07:30 WBC 13.5 H (4.5-11.0) K/mm3 Hgb 10.9 L (11.8-15.2) gm/dl Hct 33.0 L (35.5-45.6) % [place] % (Auto) 9.4 H (0.0-7.3) % [place] # 1.3 H (0.0-0.8) K/mm3 Seg Neutrophils # 8.7 H (1.8-7.7) K/mm3 Carbon Dioxide 21 L (22-30) mmol/L Glucose 116 H (75-100) mg/dL Medications & Allergies - Medications Allergies/Adverse Reactions: Allergies No Known Allergies Allergy (Unverified 10/07/18 11:53) Home Medications: Home Medications Medication Instructions Recorded Confirmed Last Taken Type Ergocalciferol (Vitamin D2) 50,000 unit PO QWEEK 10/07/18 10/07/18 Unknown Hist ory [Drisdol] Ibuprofen [Ibu] 800 mg PO TID 10/07/18 10/07/18 Unknown History NIFEdipine XL [Procardia Xl] 60 mg PO DAILY 10/07/18 10/07/18 Unknown History Active Medications: Generic Name Dose Route Start Last Admin Trade Name Freq PRN Reason Stop Dose Admin Acetaminophen 650 mg 10/07/18 21:55 Tylenol PO Q4H PRN Pain MILD(1-3)/Fever >100.5/LARA Hydralazine HCl 10 mg 10/09/18 18:33 Apresoline IV Q4HR PRN Hypertension Hydromorphone HCl 0.5 mg 10/07/18 21:55 10/09/18 18:18 Dilaudid IV 0.5 mg Q3H PRN Administration Pain , Severe (7-10) Sodium Chloride 1,000 mls @ 75 mls/hr 10/07/18 22:00 10/07/18 23:44 Nacl 0.9% 1000 Ml IV 75 mls/hr DIRECT CHAVEZ Administration Sodium Chloride 1,000 mls @ 50 mls/hr 10/08/18 15:00 10/09/18 05:52 Nacl 0.9% 1000 Ml IV 50 mls/hr DIRECT CHAVEZ Administration Sodium Chloride 1,000 mls @ 50 mls/hr 10/09/18 09:00 Nacl 0.9% 1000 Ml IV DIRECT [facility]Z Metoclopramide HCl 10 mg 10/07/18 21:55 Reglan IV Q6H PRN Nausea And Vomiting Morphine Sulfate 2 mg 10/07/18 21:55 10/10/18 08:16 Morphine IV 2 mg Q4H PRN Administration Pain, Moderate (4-6) Nifedipine 60 mg 10/09/18 12:00 Procardia Xl PO DAILY [facility] Nitroglycerin 0.4 mg 10/07/18 13:33 10/07/18 17:12 Nitrostat SL 0.4 mg .Q5MIN PRN Administration Chest Pain Ondansetron HCl 4 mg 10/07/18 21:55 Zofran IV Q8H PRN Nausea And Vomiting Pantoprazole Sodium 40 mg 10/09/18 10:00 10/09/18 09:53 Protonix PO Not Given DAILY [facility] Sodium Chloride 10 ml 10/07/18 22:00 10/09/18 21:16 Sodium Chloride Flush Syringe 10 Ml IV 10 ml BID CHAVEZ Administration Sodium Chloride 10 ml 10/07/18 21:55 Sodium Chloride Flush Syringe 10 Ml IV PRN PRN LINE FLUSH
--- NOTE | 2018-10-10 12:38 | Progress Note ---
Assessment and Plan Assessment and plan: Chest pain, r/o ACS - Probably secondary to GERD, on Protonix - Cardiac enzymes are negative, stress test was done recently and was negative - Cardiology consulted and no further investigative testing recommended Rectal bleeding - Status post EGD which showed mild gastritis - Status post colonoscopy which showed one big and 2 small polyps. The big polyp was removed in piecemeal and pt will need repeat colonoscopy in [address] Jensen - H&H stable - Avoid NSAIDS, aspirin and anticoagulation for at least 5 days per GI Abdominal distention with possible ascites - GI recommended abdominal ultrasound Acute renal failure -resolved Mild hyponatremia - resolved Bilateral lower extremity paresthesia -Started on gabapentin -DC ibuprofen on discharge Chronic hep C - For outpatient f/u DVT prophylaxis on SCD Disposition - Will await abdominal ultrasound before discharge History Interval history: Patient has no new complaints. He denies bleeding from any orifice. Hospitalist Physical - Constitutional Vitals: Temp Pulse Resp BP Pulse Ox 98.4 F 100 H 18 164/85 98 10/10/18 08:19 10/10/18 05:18 10/10/18 08:19 10/10/18 08:19 10/10/18 10:00 General appearance: Present: no acute distress, obese - EENT Eyes: Present: PERRL, EOM intact ENT: hearing intact, clear oral mucosa - Neck Neck: Present: supple - Respiratory Respiratory effort: normal Respiratory: bilateral: CTA - Cardiovascular Rhythm: regular Heart Sounds: Present: S1 & S2 - Extremities Extremities: No edema - Abdominal General gastrointestinal: soft, non-tender, distended - Integumentary Integumentary: Present: clear, warm, dry - Neurologic Neurologic: CNII-XII intact Results - Labs CBC & Chem 7: 10/10/18 07:30 10/10/18 07:30 Labs: Laboratory Last Values WBC 13.5 K/mm3 (4.5-11.0) H 10/10/18 07:30 RBC 3.72 M/mm3 (3.65-5.03) 10/10/18 07:30 Hgb 10.9 gm/dl (11.8-15.2) L 10/10/18 07:30 Hct 33.0 % (35.5-45.6) L 10/10/18 07:30 MCV 89 fl (84-94) 10/10/18 07:30 MCH 29 pg (28-32) 10/10/18 07:30 MCHC 33 % (32-34) 10/10/18 07:30 RDW 15.1 % (13.2-15.2) 10/10/18 07:30 Plt Count 237 K/mm3 (140-440) 10/10/18 07:30 Lymph % (Auto) 24.1 % (13.4-35.0) 10/10/18 07:30 [place] % (Auto) 9.4 % (0.0-7.3) H 10/10/18 07:30 Eos % (Auto) 1.8 % (0.0-4.3) 10/10/18 07:30 Baso % (Auto) 0.6 % (0.0-1.8) 10/10/18 07:30 Lymph # 3.2 K/mm3 (1.2-5.4) 10/10/18 07:30 [place] # 1.3 K/mm3 (0.0-0.8) H 10/10/18 07:30 Eos # 0.2 K/mm3 (0.0-0.4) 10/10/18 07:30 Baso # 0.1 K/mm3 (0.0-0.1) 10/10/18 07:30 Seg Neutrophils % 64.1 % (40.0-70.0) 10/10/18 07:30 Seg Neutrophils # 8.7 K/mm3 (1.8-7.7) H 10/10/18 07:30 PT 12.9 Sec. (12.2-14.9) 10/07/18 12:48 INR 0.92 (0.87-1.13) 10/07/18 12:48 APTT 28.4 Sec. (24.2-36.6) 10/07/18 12:48 Sodium 138 mmol/L (137-145) 10/10/18 07:30 Potassium 3.9 mmol/L (3.6-5.0) 10/10/18 07:30 Chloride 105.6 mmol/L (98-107) 10/10/18 07:30 Carbon Dioxide 21 mmol/L (22-30) L 10/10/18 07:30 Anion Gap 15 mmol/L 10/10/18 07:30 BUN 20 mg/dL (9-20) 10/10/18 07:30 Creatinine 1.3 mg/dL (0.8-1.5) 10/10/18 07:30 Estimated GFR > 60 ml/min 10/10/18 07:30 BUN/Creatinine Ratio 15 % 10/10/18 07:30 Glucose 116 mg/dL (75-100) H 10/10/18 07:30 Hemoglobin A1c 5.8 % (4-6) 10/07/18 13:25 Calcium 8.6 mg/dL (8.4-10.2) 10/10/18 07:30 Total Bilirubin 0.40 mg/dL (0.1-1.2) 10/08/18 07:00 Direct Bilirubin < 0.2 mg/dL (0-0.2) 10/07/18 12:48 AST 11 units/L (5-40) 10/08/18 07:00 ALT 10 units/L (7-56) 10/08/18 07:00 Alkaline Phosphatase 71 units/L (35-129) 10/08/18 07:00 Troponin T < 0.010 ng/mL (0.00-0.029) 10/07/18 14:44 Total Protein 8.2 g/dL (6.3-8.2) 10/08/18 07:00 Albumin 3.7 g/dL (3.9-5) L 10/08/18 07:00 Albumin/Globulin Ratio 0.8 % 10/08/18 07:00 Active Medications - Current Medications Current Medications: Generic Name Dose Route Start Last Admin Trade Name Freq PRN Reason Stop Dose Admin Acetaminophen 650 mg 10/07/18 21:55 Tylenol PO Q4H PRN Pain MILD(1-3)/Fever >100.5/LARA Gabapentin 100 mg 10/10/18 14:00 Neurontin PO Q8HR [facility] Hydralazine HCl 10 mg 10/09/18 18:33 Apresoline IV Q4HR PRN Hypertension Sodium Chloride 1,000 mls @ 75 mls/hr 10/07/18 22:00 10/07/18 23:44 Nacl 0.9% 1000 Ml IV 75 mls/hr DIRECT CHAVEZ Administration Sodium Chloride 1,000 mls @ 50 mls/hr 10/08/18 15:00 10/09/18 05:52 Nacl 0.9% 1000 Ml IV 50 mls/hr DIRECT CHAVEZ Administration Sodium Chloride 1,000 mls @ 50 mls/hr 10/09/18 09:00 Nacl 0.9% 1000 Ml IV DIRECT [facility] Metoclopramide HCl 10 mg 10/07/18 21:55 Reglan IV Q6H PRN Nausea And Vomiting Morphine Sulfate 2 mg 10/07/18 21:55 10/10/18 08:16 Morphine IV 2 mg Q4H PRN Administration Pain, Moderate (4-6) Nifedipine 60 mg 10/09/18 12:00 Procardia Xl PO DAILY [facility] Nitroglycerin 0.4 mg 10/07/18 13:33 10/07/18 17:12 Nitrostat SL 0.4 mg .Q5MIN PRN Administration Chest Pain Ondansetron HCl 4 mg 10/07/18 21:55 Zofran IV Q8H PRN Nausea And Vomiting Pantoprazole Sodium 40 mg 10/09/18 10:00 10/09/18 09:53 Protonix PO Not Given DAILY [facility] Sodium Chloride 10 ml 10/07/18 22:00 10/09/18 21:16 Sodium Chloride Flush Syringe 10 Ml IV 10 ml BID CHAVEZ Administration Sodium Chloride 10 ml 10/07/18 21:55 Sodium Chloride Flush Syringe 10 Ml IV PRN PRN LINE FLUSH
[2018-10-10] MEDS ORDERED: NEURONTIN PO SCH (14:00)
[2018-10-10] MEDS: NEURONTIN PO SCH ×2 (19:12→21:43)
[2018-10-10] MEDS: PROCARDIA XL PO SCH (20:10)
--- NOTE | 2018-10-10 20:35 | Ultrasound Report ---
PROCEDURE: US ABDOMEN COMPLETE TECHNIQUE: Real-time sonography in multiple planes of the abdomen was performed with image documenta tion. HISTORY: Liver cirrhosis and ascites COMPARISONS: None . FINDINGS: This study is limited due to patient body habitus. Liver demonstrates normal echotexture without any obvious focal lesions. Gallbladder is well-distended with normal outlines and normal wall thickness. There are a few small calculi in the dependent portion. There are no Pericholecystic collections. Com mon duct is 6 mm in caliber. Spleen is normal in size and echotexture. Pancreas is not visualized due to 4 window. Bilateral kidneys demonstrate normal echotexture without calculi or hydronephrosis. Rig ht kidney measures 10 x 6 x 5 cm and left kidney measures 10 x 6 x 4 cm. Abdominal aorta is of normal caliber. 2 cm in diameter in the proximal portion. IMPRESSION: Limited study due to patient body habitus Unremarkable study This document is electronically signed by Edmundo Clark MD., October 10 2018 08:33:31 PM ET
[2018-10-10] MEDS: SODIUM CHLORIDE FLUSH SYRINGE 10 ML IV SCH ×3 (21:13→21:43)
[2018-10-10] MEDS: PROTONIX PO SCH (21:18)
[2018-10-11] MEDS: NEURONTIN PO SCH (05:18)
--- NOTE | 2018-10-11 08:27 | Progress Note ---
Subjective Date of service: 10/11/18 Principal diagnosis: GI Bleeding Interval history: Patient is clinically doing well and in no apparent distress. Colonoscopy done had shown the presence of several polyps; the largest was removed in a'piece meal' fashion and patient will need a repeat Colonoscopy in 6 months.If patient's U/S is suggestive ascites patient may need to be placed on diuretics (eg: Lasix and Aldactone). As patient Hepatitis C, even though it has been treated, patient will need 6 monthly U/S of the liver to continue to assess for possible hepatoma. O/E HEENT: No JVD Lungs: Reduced Breath Sounds CVS: Normal Heart Sounds Abdomen: Sligtly distended, Bowel sounds present, possible ascites HEAD INSPECTOR: Alert and oriented A/P Multiple Colon Poyps/ Esophagitis/Gastric Erosion/H/O Chronic Hep C Treated: Repeat Colonoscopy after 6months. U/S of the liver is said to have been done; it needs to be repeated again in 6 months time. Objective - Constitutional Vitals: Vital Signs - 12hr 10/10/18 10/10/18 10/10/18 20:29 20:40 23:23 Temperature 99.0 F 99.8 F H Pulse Rate 98 H 98 H 94 H Respiratory 20 18 Rate Blood Pressure 157/79 125/75 O2 Sat by Pulse 98 97 Oximetry 10/11/18 03:43 Temperature 98.8 F Pulse Rate 96 H Respiratory 20 Rate Blood Pressure 153/85 O2 Sat by Pulse 99 Oximetry - Labs CBC & Chem 7: 10/10/18 07:30 10/10/18 07:30 Medications & Allergies - Medications Allergies/Adverse Reactions: Allergies No Known Allergies Allergy (Unverified 10/07/18 11:53) Home Medications: Home Medications Medication Instructions Recorded Confirmed Last Taken Type Ergocalciferol (Vitamin D2) 50,000 unit PO QWEEK 10/07/18 10/07/18 Unknown History [Drisdol] Ibuprofen [Ibu] 800 mg PO TID 10/07/18 10/07/18 Unknown History NIFEdipine XL [Procardia Xl] 60 mg PO DAILY 10/07/18 10/07/18 Unknown History Epclusa 400 mg-100 mg Tablet 400 mg PO DAILY 10/10/18 10/10/18 Unknown History Active Medications: Generic Name Dose Route Start Last Admin Trade Name Freq PRN Reason Stop Dose Admin Acetaminophen 650 mg 10/07/18 21:55 Tylenol PO Q4H PRN Pain MILD(1-3)/Fever >100.5/LARA Gabapentin 100 mg 10/10/18 14:00 10/11/18 05:18 Neurontin PO 100 mg Q8HR CHAVEZ Administration Hydralazine HCl 10 mg 10/09/18 18:33 Apresoline IV Q4HR PRN Hypertension Sodium Chloride 1,000 mls @ 75 mls/hr 10/07/18 22:00 10/07/18 23:44 Nacl 0.9% 1000 Ml IV 75 mls/hr DIRECT CHAVEZ Administration Sodium Chloride 1,000 mls @ 50 mls/hr 10/08/18 15:00 10/09/18 05:52 Nacl 0.9% 1000 Ml IV 50 mls/hr DIRECT CHAVEZ Administration Sodium Chloride 1,000 mls @ 50 mls/hr 10/09/18 09:00 Nacl 0.9% 1000 Ml IV DIRECT [facility] Metoclopramide HCl 10 mg 10/07/18 21:55 Reglan IV Q6H PRN Nausea And Vomiting Morphine Sulfate 2 mg 10/07/18 21:55 10/10/18 08:16 Morphine IV 2 mg Q4H PRN Administration Pain, Moderate (4-6) Nifedipine 60 mg 10/09/18 12:00 10/10/18 20:10 Procardia Xl PO 60 mg DAILY [facility] Administration Nitroglycerin 0.4 mg 10/07/18 13:33 10/07/18 17:12 Nitrostat SL 0.4 mg .Q5MIN PRN Administration Chest Pain Ondansetron HCl 4 mg 10/07/18 21:55 Zofran IV Q8H PRN Nausea And Vomiting Pantoprazole Sodium 40 mg 10/09/18 10:00 10/10/18 21:18 Protonix PO 40 mg DAILY [facility] Administration Sodium Chloride 10 ml 10/07/18 22:00 10/10/18 21:43 Sodium Chloride Flush Syringe 10 Ml IV 10 ml BID CHAVEZ Administration Sodium Chloride 10 ml 10/07/18 21:55 10/10/18 19:00 Sodium Chloride Flush Syringe 10 Ml IV 10 ml PRN PRN Administration LINE FLUSH
[2018-10-11] MEDS: PROTONIX PO SCH (09:57)
[2018-10-11] MEDS: PROCARDIA XL PO SCH (09:57)
[2018-10-11] MEDS: SODIUM CHLORIDE FLUSH SYRINGE 10 ML IV SCH (09:58)
--- NOTE | 2018-10-11 11:04 | Discharge Summary ---
Providers - Providers Date of Admission: 10/07/18 14:41 Date of discharge: 10/11/18 Attending physician: MATA RODRIGUEZ 10/07/18 22:00 Consult to Physician [CONS] Routine Comment: nurse Danilo said Dr Bae already seen pt Consulting Provider: NINA BAE Physician Instructions: Reason For Exam: gi bleed-lower 10/07/18 22:02 Consult to Physician [CONS] Routine Comment: Consulting Provider: ELA CASTLE Physician Instructions: Reason For Exam: Unstable angina [facility] Condition: Fair Pertinent studies: Abdominal pelvis CT scan unremarkable. Abdominal ultrasound no evidence of ascites Procedures: Colonoscopy polyp identified both removed follow-up colonoscopy [address] Bae [facility] course: Patient presented with GI bleeding found to have a polyp. Polyp was removed patient to have repeat colonoscopy in 6 months. Patient had a history of hepatitis C we'll also follow-up [facility] 6 months. Patient had ultrasound without ascites. We'll follow-up 6 months ultrasound to rule out hepatoma. Aspirin course was complicated by acute tubular necrosis which resolved. DT scan small hiatal hernia and cholelithiasis and diverticulosis otherwise unremarkable. Patient stable for discharge home anemia resolved. Avoid NSAIDs as educated Disposition: DC-01 TO HOME OR SELFCARE - Discharge Diagnoses (1) GI bleed Status: Acute Qualifiers: GI bleed type/associated pathology: unspecified gastrointestinal hemorrhage type Qualified Code(s): K92.2 - Gastrointestinal hemorrhage, unspecified Core Measure Documentation - Palliative Care Palliative Care/ Comfort Measures: Not Applicable - Core Measures Any of the following diagnoses?: none Exam - Constitutional Vitals: Temp Pulse Resp BP Pulse Ox 97.9 F 94 H 20 145/85 95 10/11/18 08:49 10/11/18 08:49 10/11/18 08:49 10/11/18 08:49 10/11/18 09:00 General appearance: Present: no acute distress, well-nourished - EENT Eyes: Present: PERRL ENT: hearing intact, clear oral mucosa - Neck Neck: Present: supple, normal ROM - Respiratory Respiratory effort: normal Respiratory: bilateral: CTA - Cardiovascular Heart Sounds: Present: S1 & S2. Absent: rub, click - Extremities Extremities: pulses symmetrical, No edema Peripheral Pulses: within normal limits - Abdominal General gastrointestinal: Present: soft, non-tender, non-distended, normal bowel sounds, other (obese) Male genitourinary: Present: normal - Integumentary Integumentary: Present: clear, warm, dry - Musculoskeletal Musculoskeletal: gait normal, strength equal bilaterally - Psychiatric Psychiatric: appropriate mood/affect, intact judgment & insight - Neurologic Neurologic: CNII-XII intact, moves all extremities Plan Activity: no restrictions Weight Bearing Status: Weight Bear as Tolerated Diet: low carbohydrate Follow up with: DUGLAS COWAN MD [Primary Care Provider] - 7 Days Prescriptions: Gabapentin [Neurontin] 100 mg PO Q8HR #30 capsule Pantoprazole [Protonix TAB] 40 mg PO DAILY #30 tablet
[2018-10-12 17:52] VITALS: BP 145/85
== END 2018-10-11 16:12 | disposition home or self-care (01) | DRG 380 ==
LOC: ED 11:52 → 4A 14:41
PROVIDERS: ADMIT Internal Medicine; ATTEND Internal Medicine
PROC: 0DB78ZX Excision of Stomach, Pylorus, Via Natural or Artificial Opening Endoscopic, Diagnostic (ICD-10-PCS; principal; 2018-10-08)
PROC: 0DBL8ZZ Excision of Transverse Colon, Via Natural or Artificial Opening Endoscopic (ICD-10-PCS; 2018-10-09)
DX: K22.11 Ulcer of esophagus with bleeding (principal); N17.0 Acute kidney failure with tubular necrosis; I20.0 Unstable angina; E87.1 Hypo-osmolality and hyponatremia; B18.8 Other chronic viral hepatitis; Z68.43 Body mass index [BMI] 50.0-59.9, adult; K29.71 Gastritis, unspecified, with bleeding; K80.20 Calculus of gallbladder without cholecystitis without obstruction; K57.90 Diverticulosis of intestine, part unspecified, without perforation or abscess without bleeding; K44.9 Diaphragmatic hernia without obstruction or gangrene; D64.9 Anemia, unspecified; I10 Essential (primary) hypertension; M19.90 Unspecified osteoarthritis, unspecified site; K63.5 Polyp of colon; R07.9 Chest pain, unspecified; R20.2 Paresthesia of skin; E66.01 Morbid (severe) obesity due to excess calories; Z82.49 Family history of ischemic heart disease and other diseases of the circulatory system
CPT/HCPCS: 36415; 71045; 74176; 76700; 80048; 80053; 80076; 83036; 84484; 85025; 85610; 85730; 88305; 88312; 88342; 93005; 93010; G0378; C9113; J0360; J1170; J2270; J2704; J7030